=== PATIENT | male | born 1955 | race Two or more races ===

== ENCOUNTER 2019-11-20 14:25 | Inpatient (IN) | payer BC, OTHER ==
[~2019-11-20] VITALS: Ht 172.7 cm; Wt 91.7 kg
[2019-11-20] MEDS ORDERED: SODIUM CHLORIDE 0.9% 1,000 ML IV ONE ×2 (14:32)
[2019-11-20 15:15] LABS: Basophils # (auto) 0.1 10 ^3/uL (0-0.2); Basophils % (auto) 0.6 % (0.0-2.0); Eosinophils # (auto) 0.4 10 ^3/uL (0-0.8); Eosinophils % (auto) 4.2 % (0.0-7.0); Hemoglobin 17.7 g/dL (13.5-17.5); Lymphocytes # (auto) 1.4 10 ^3/uL (0.4-5.4); Monocytes # (auto) 0.6 10 ^3/uL (0-1.3); Nucleated Red Blood Cells % 0.1 %
[2019-11-20 15:18] LABS: Hematocrit 51.6 % (41.0-53.0); Lymphocytes % (auto) 16.1 % (10.0-50.0); Mean Corpuscular Hemoglobin 28.9 pg (28.0-32.0); Mean Corpuscular Hgb Conc. 34.3 g/dL (32.0-36.0); Mean Corpuscular Volume 84.4 fL (80.0-100.0); Monocytes % (auto) 7.5 % (0.0-12.0); Neutrophils # (auto) 6.2 10 ^3/uL (1.6-8.6); Neutrophils % (auto) 71.6 % (37.0-80.0); Platelet Count (auto) 221 10^3/uL (140-450); Red Blood Cells 6.12 10^6/uL (4.5-5.90); White Blood Cell 8.6 10^3/uL (4.4-10.8)
[2019-11-20 15:25] LABS: Alanine Aminotransferase 37 U/L (16-61); Albumin 3.6 g/dL (3.4-5.0); Anion Gap 6 (5-15); Aspartate Aminotransferase 24 U/L (15-37); Blood Urea Nitrogen 13 mg/dL (7-18); Calcium 8.7 mg/dL (8.5-10.1); Carbon Dioxide 24 mmol/L (21-32); Chloride 108 mmol/L (98-107); GFR African American 97 mL/min; GFR Non-African American 80 mL/min; Glucose 101 mg/dL (74-106); Potassium 4.1 mmol/L (3.5-5.1); Sodium 138 mmol/L (136-145)
[2019-11-20 15:30] LABS: Alkaline Phosphatase 84 U/L (45-117); Bilirubin, Total 0.6 mg/dL (0.2-1.0); Total Protein 7.1 g/dL (6.4-8.2)
[2019-11-20 16:07] LABS: Urine Bacteria NONE SEEN /hpf (None Seen); Urine Blood TRACE /uL (Negative); Urine Mucus FEW (None Seen); Urine Specific Gravity 1.021 (1.001-1.035); Urine WBC 4 /hpf (0 - 3)
[2019-11-20] MEDS ORDERED: AMIODARONE HCL 150 MG in D5W 5% 100 ML IV ONE (16:45)
[2019-11-20] MEDS ORDERED: ADENOSINE 6 MG/2 ML INJ IV ONE ×2 (18:45)
[2019-11-20] MEDS ORDERED: dilTIAZem 25 MG/5 ML VIAL IV ONE (19:00)
[2019-11-20] MEDS ORDERED: ACETAMINOPHEN 500 MG TAB PO PRN (19:00)
[2019-11-20] MEDS ORDERED: TEMAZEPAM 15 MG CAP PO PRN (19:00)
[2019-11-20] MEDS ORDERED: MORPHINE SULF INJ 2 MG/ML SYRINGE 1ML IV PRN (19:00)
[2019-11-20] MEDS ORDERED: PROMETHAZINE HCL 25 MG/ML 1ML IV PRN (19:00)
[2019-11-20] MEDS ORDERED: NITROGLYCERIN 0.4 MG SL TAB SL PRN (19:00)
[2019-11-20] MEDS ORDERED: traMADol HCL 50 MG TAB PO PRN (19:00)
[2019-11-20] MEDS: dilTIAZem 125mg/125ml BAG KIT 100 ML IV SCH (19:15)
[2019-11-20] MEDS: SODIUM CHLORIDE 0.9% 1,000 ML IV SCH (19:15)
[2019-11-20 19:48] LABS: Alcohol, Urine < 3.0 mg/dL (0-5); Amphetamine Screen, Urine NEGATIVE (NEGATIVE); Barbiturate Scree,Urine NEGATIVE (NEGATIVE); Benzodiazephine Screen, Urine NEGATIVE (NEGATIVE); Cannabinoid Screen, Urine NEGATIVE (NEGATIVE); Cocaine Screen, Urine NEGATIVE (NEGATIVE); Opiate Scree,Urine NEGATIVE (NEGATIVE); Phencyclidine Screen, Urine NEGATIVE (NEGATIVE)
[2019-11-20] MEDS ORDERED: LABETALOL HCL 5 MG/ML 4ML SYRINGE IV ONE ×3 (21:00→21:30)
[2019-11-20] MEDS ORDERED: LABETALOL HCL 5 MG/ML ML 20ML VIAL IV ONE (21:26)
[2019-11-20 21:50] VITALS: BP 138/88
--- NOTE | 2019-11-20 21:50 | NUR ---
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 Patient transferred to bed, connected to ICU monitoring, and weighed by [facility]. Patient oriented to CADE ALFARO, primary RN, unit, room, bed, and unit policies regarding patient care and visiting hours. Room air, pain level 0/10, and at baseline ambulates independently without the use of assistive devices. Bed locked in lowest position, side rails up x2, and call light within reach. IV: right forearm 18g IID inserted on 11/20/19 and left forearm 18 g running cardizem at 10/NS at 150 inserted on 11/20/19. Skin intact. All questions and concerns addressed, patient verbalized understanding.
[2019-11-20 22:00] VITALS: BP 138/88
[2019-11-20] MEDS ORDERED: ATORVASTATIN 20 MG TAB PO SCH (22:00)
--- NOTE | 2019-11-20 22:30 | NUR ---
MRSA swab sent to lab via [employer] system.
[2019-11-20] MEDS ORDERED: AMIODARONE HCL 900 MG in DEXTROSE 500 ML IV SCH (22:49)
[2019-11-20] MEDS: METOPROLOL TARTRATE 25 MG TAB PO SCH (22:51)
[2019-11-20 23:00] VITALS: BP 121/77
[2019-11-21] VITALS (13 sets, daily range): BP systolic 107–126; BP diastolic 61–82
[2019-11-21] MEDS ORDERED: LEVO112T4 PO (00:30)
[2019-11-21] MEDS: SODIUM CHLORIDE 0.9% 1,000 ML IV SCH (01:38)
[2019-11-21] MEDS ORDERED: dilTIAZem 25 MG/5 ML VIAL IV ONE (06:30)
[2019-11-21] MEDS: dilTIAZem 125mg/125ml BAG KIT 100 ML IV SCH (06:44)
--- NOTE | 2019-11-21 06:45 | NUR ---
Page sent to policyholder information clerk hospitalist in regards to restarting patient's home medication Synthroid 112 mcg.
[2019-11-21] MEDS ORDERED: LEVOTHYROXINE SODIUM 112 MCG TAB PO SCH (07:00)
--- NOTE | 2019-11-21 09:22 | NUR ---
2 D ECHO BEING DONE AT BEDSIDE. SEE REPORT.
[2019-11-21] MEDS: METOPROLOL TARTRATE 25 MG TAB PO SCH (09:50)
[2019-11-21] MEDS ORDERED: ENOXAPARIN SOD 40 MG/0.4 ML SYRINGE SC SCH (10:00)
[2019-11-21] MEDS ORDERED: ASPirin 81 mg TAB PO SCH (10:00)
--- NOTE | 2019-11-21 10:55 | NUR ---
DR. DONNELLY AT BEDSIDE TALKING TO PATIENT ANS . SEE MD NOTES.
[2019-11-21 11:46] LABS: BUN/Creatinine Ratio 12.2; Calcium 8.5 mg/dL (8.5-10.1); Magnesium 2.3 mg/dL (1.6-2.6)
--- NOTE | 2019-11-21 14:36 | NUR ---
Discharge instructions given as ordered. Encourage to follow up with PCP as instructed. All questions and concerns addressed. Patient verbalized understanding. Medication reconciliation form completed and copy given to patient. IV removed FROM LEFT A/C AND RIGHT FA with catheter intact, pressure dressing applied. Patient taken to vehicle via wheelchair with all personal belongings, accompanied by RN. No distress noted at time of departure.
[2019-11-22] MEDS ORDERED: LEVOTHYROXINE SODIUM 112 MCG TAB PO SCH (07:00)
== END 2019-11-21 14:23 | disposition home or self-care (01) | DRG 310 ==
LOC: ER 14:25 → EDBD 14:25 → TELE 14:26 → ICU WEST 21:53
PROVIDERS: ADMIT Internal Medicine; ATTEND Internal Medicine
DX: I48.92 Unspecified atrial flutter (principal); I48.19 Other persistent atrial fibrillation; E03.9 Hypothyroidism, unspecified; E11.9 Type 2 diabetes mellitus without complications; E66.9 Obesity, unspecified; H50.89 Other specified strabismus; H51.8 Other specified disorders of binocular movement; Z82.3 Family history of stroke; Z82.49 Family history of ischemic heart disease and other diseases of the circulatory system; Z79.899 Other long term (current) drug therapy; Z68.30 Body mass index [BMI] 30.0-30.9, adult
CPT/HCPCS: 36415; 71045; 80048; 80053; 80061; 80307; 81001; 82550; 83735; 83880; 84443; 84484; 85025; 85379; 85652; 86141; 87081; 93005; 93306; 96361; 96365; 96366; 96375; G0378; J0153; J7060

== ENCOUNTER 2020-01-19 10:16 | Inpatient (IN) | payer BC ==
[~2020-01-19] VITALS: Ht 172.7 cm; Wt 95.8 kg
[~2020-01-19 10:16] MED LIST: LEVO112T4 PO
[2020-01-19] MEDS ORDERED: ADENOSINE 6 MG/2 ML INJ IV ONE ×3 (10:27→10:45)
[2020-01-19] MEDS ORDERED: ASPirin 81 mg TAB PO ONE (10:30)
[2020-01-19] MEDS ORDERED: dilTIAZem 125mg/125ml BAG KIT 125 ML IV ONE ×3 (10:35→10:45)
[2020-01-19] MEDS ORDERED: dilTIAZem 25 MG/5 ML VIAL IV ONE (10:45)
[2020-01-19 10:53] LABS: Basophils # (auto) 0.1 10 ^3/uL (0-0.2); Mean Corpuscular Hemoglobin 28.2 pg (28.0-32.0); Monocytes # (auto) 0.8 10 ^3/uL (0-1.3); Monocytes % (auto) 7.7 % (0.0-12.0)
[2020-01-19 10:56] LABS: Basophils % (auto) 1.2 % (0.0-2.0); Eosinophils # (auto) 0.5 10 ^3/uL (0-0.8); Eosinophils % (auto) 4.5 % (0.0-7.0); Hemoglobin 19.5 g/dL (13.5-17.5); Lymphocytes # (auto) 2.4 10 ^3/uL (0.4-5.4); Lymphocytes % (auto) 22.4 % (10.0-50.0); Mean Corpuscular Hgb Conc. 33.1 g/dL (32.0-36.0); Neutrophils # (auto) 6.8 10 ^3/uL (1.6-8.6); Neutrophils % (auto) 64.2 % (37.0-80.0); Nucleated Red Blood Cells % 0.2 %; Platelet Count (auto) 344 10^3/uL (140-450); Red Blood Cells 6.93 10^6/uL (4.5-5.90); Red Cell Distribution Width 14.8 % (11.8-14.3); White Blood Cell 10.6 10^3/uL (4.4-10.8)
[2020-01-19 11:11] LABS: INR 1.3 (0.9-1.15); Partial Thromboplastin Time 31.1 sec (23.64-32.05)
[2020-01-19 11:14] LABS: Albumin 3.8 g/dL (3.4-5.0); Anion Gap 5 (5-15); Calcium 9.1 mg/dL (8.5-10.1); Carbon Dioxide 26 mmol/L (21-32); Chloride 108 mmol/L (98-107); Glucose 122 mg/dL (74-106); Potassium 3.8 mmol/L (3.5-5.1); Sodium 139 mmol/L (136-145)
[2020-01-19 11:15] LABS: Alanine Aminotransferase 38 U/L (16-61); Aspartate Aminotransferase 24 U/L (15-37); GFR African American 80 mL/min; GFR Non-African American 66 mL/min
[2020-01-19 11:25] LABS: Alkaline Phosphatase 91 U/L (45-117); Bilirubin, Total 0.8 mg/dL (0.2-1.0); Total Protein 8.2 g/dL (6.4-8.2)
[2020-01-19] MEDS ORDERED: SODIUM CHLORIDE 0.9% 1,000 ML IV ONE (11:45)
[2020-01-19 13:02] LABS: BUN/Creatinine Ratio 11.8; Blood Urea Nitrogen 14 mg/dL (7-18)
[2020-01-19] MEDS ORDERED: NITROGLYCERIN 0.4 MG SL TAB SL PRN ×2 (14:30→15:15)
[2020-01-19] MEDS ORDERED: MORPHINE SULF INJ 2 MG/ML SYRINGE 1ML IV PRN ×2 (14:30→15:15)
[2020-01-19] MEDS ORDERED: METOPROLOL TARTRATE 1MG/1ML-5ML VIAL IV PRN (15:00)
[2020-01-19] MEDS ORDERED: AMIODARONE HCL 150 MG in D5W 5% 100 ML IV ONE (15:00)
[2020-01-19] MEDS ORDERED: AMIODARONE 450mg/250ml AE 250 ML IV SCH (15:00)
[2020-01-19] MEDS ORDERED: SODIUM CHLORIDE 0.9% 1,000 ML IV SCH (15:04)
[2020-01-19] MEDS ORDERED: IOHEXOL 350 MG/ML 100ML IJ ONE (15:06)
[2020-01-19] MEDS ORDERED: HYDROcodone-ACET 5/325MG TAB PO PRN (15:15)
[2020-01-19] MEDS ORDERED: DOCUSATE SOD 100 MG CAP PO PRN (15:15)
[2020-01-19] MEDS ORDERED: ALUM & MAG HYDROX-SIMETH LIQ(MAALOX) 30 ML PO PRN (15:15)
[2020-01-19] MEDS ORDERED: MORPHINE SULFATE 4 MG/ML SYR/VIAL IV PRN (15:15)
[2020-01-19] MEDS ORDERED: ENOXAPARIN SOD 100 MG/1 ML SYRINGE SC ONE (15:15)
[2020-01-19] MEDS ORDERED: METOCLOPRAMIDE HCL 5MG/ml INJ 2ml VIAL IV PRN (15:15)
[2020-01-19 15:33] LABS: Cholesterol 131 mg/dL (< 200)
[2020-01-19 15:35] LABS: HDL Cholesterol 43 mg/dL (40-59); LDL Cholesterol 76 mg/dL (< 100); Triglycerides 106 mg/dL (< 150)
[2020-01-19 17:37] VITALS: BP 112/66
[2020-01-19] MEDS: SODIUM CHLORIDE 0.9% 1,000 ML IV SCH ×2 (19:50→21:31)
[2020-01-19 20:00] VITALS: BP 132/79
[2020-01-19] MEDS: AMIODARONE 450mg/250ml AE 250 ML IV SCH (21:31)
[2020-01-19 22:00] VITALS: BP 132/79
[2020-01-20] VITALS (7 sets, daily range): BP systolic 135–158; BP diastolic 86–96
[2020-01-20 01:05] LABS: Urine Bacteria FEW /hpf (None Seen); Urine Blood Negative /uL (Negative); Urine Mucus FEW (None Seen); Urine Specific Gravity 1.039 (1.001-1.035); Urine WBC 2 /hpf (0 - 3)
[2020-01-20 01:16] LABS: Barbiturate Scree,Urine NEGATIVE (NEGATIVE); Benzodiazephine Screen, Urine NEGATIVE (NEGATIVE); Cannabinoid Screen, Urine NEGATIVE (NEGATIVE); Cocaine Screen, Urine NEGATIVE (NEGATIVE); Opiate Scree,Urine NEGATIVE (NEGATIVE); Phencyclidine Screen, Urine NEGATIVE (NEGATIVE)
[2020-01-20 01:26] LABS: Amphetamine Screen, Urine NEGATIVE (NEGATIVE)
[2020-01-20 05:28] LABS: Basophils # (auto) 0.1 10 ^3/uL (0-0.2); Basophils % (auto) 0.8 % (0.0-2.0); Eosinophils # (auto) 0.6 10 ^3/uL (0-0.8); Eosinophils % (auto) 7.2 % (0.0-7.0); Hematocrit 52.8 % (41.0-53.0); Hemoglobin 17.4 g/dL (13.5-17.5); Lymphocytes # (auto) 1.5 10 ^3/uL (0.4-5.4); Lymphocytes % (auto) 18.1 % (10.0-50.0); Mean Corpuscular Hemoglobin 28.4 pg (28.0-32.0); Mean Corpuscular Hgb Conc. 32.9 g/dL (32.0-36.0); Mean Corpuscular Volume 86.3 fL (80.0-100.0); Monocytes # (auto) 0.6 10 ^3/uL (0-1.3); Monocytes % (auto) 7.3 % (0.0-12.0); Neutrophils # (auto) 5.4 10 ^3/uL (1.6-8.6); Neutrophils % (auto) 66.6 % (37.0-80.0); Nucleated Red Blood Cells % 0.2 %; Platelet Count (auto) 192 10^3/uL (140-450); Red Blood Cells 6.13 10^6/uL (4.5-5.90); Red Cell Distribution Width 14.3 % (11.8-14.3); White Blood Cell 8.1 10^3/uL (4.4-10.8)
[2020-01-20 05:42] LABS: INR 1.08 (0.9-1.15); Partial Thromboplastin Time 27.9 sec (23.64-32.05)
[2020-01-20 05:48] LABS: Albumin 3.4 g/dL (3.4-5.0); Anion Gap 5 (5-15); Blood Urea Nitrogen 12 mg/dL (7-18); Calcium 8.4 mg/dL (8.5-10.1); Carbon Dioxide 24 mmol/L (21-32); Chloride 109 mmol/L (98-107); Glucose 97 mg/dL (74-106); Magnesium 2.4 mg/dL (1.6-2.6); Potassium 3.9 mmol/L (3.5-5.1); Sodium 138 mmol/L (136-145)
[2020-01-20 05:54] LABS: Alanine Aminotransferase 31 U/L (16-61); Alkaline Phosphatase 72 U/L (45-117); Aspartate Aminotransferase 19 U/L (15-37); BUN/Creatinine Ratio 14.3; Bilirubin, Total 1.2 mg/dL (0.2-1.0); Creatine Kinase IFCC 113 U/L (39-308); GFR African American 119 mL/min; GFR Non-African American 98 mL/min; Phosphorus 2.7 mg/dL (2.5-4.90); Total Protein 6.8 g/dL (6.4-8.2)
[2020-01-20] MEDS ORDERED: LEVOTHYROXINE SODIUM 112 MCG TAB PO SCH (07:00)
[2020-01-20] MEDS ORDERED: METOPROLOL SUCCINATE XL 50 MG TAB PO SCH (10:00)
[2020-01-20] MEDS ORDERED: METO25TA93 PO (10:33)
[2020-01-20] MEDS: AMIODARONE 450mg/250ml AE 250 ML IV SCH (14:01)
[2020-01-20] MEDS: SODIUM CHLORIDE 0.9% 1,000 ML IV SCH (14:32)
[2020-01-20] MEDS ORDERED: ASPI-498 PO (14:38)
[2020-01-20] MEDS ORDERED: MET25T PO (14:38)
[2020-01-20] MEDS ORDERED: MELO1TAB56 PO (14:41)
[2020-01-20] MEDS ORDERED: MORPHINE SULF INJ 2 MG/ML SYRINGE 1ML IV PRN (15:00)
[2020-01-20] MEDS ORDERED: AMIO200T4 PO (21:19)
[2020-01-20] MEDS ORDERED: METO-6 PO (21:19)
[2020-01-20] MEDS ORDERED: AMIODARONE HCL 200 MG TAB PO SCH (22:00)
== END 2020-01-20 23:05 | disposition home or self-care (01) | DRG 310 ==
LOC: ER 10:16 → TELE 10:17 → TELE-CENTR 16:54
PROVIDERS: ADMIT Hospitalist; ATTEND Hospitalist
DX: I48.4 Atypical atrial flutter (principal); D75.1 Secondary polycythemia; I45.89 Other specified conduction disorders; I47.1 Supraventricular tachycardia; E03.9 Hypothyroidism, unspecified; E66.01 Morbid (severe) obesity due to excess calories; E86.0 Dehydration; H50.9 Unspecified strabismus; I10 Essential (primary) hypertension; I48.91 Unspecified atrial fibrillation; J44.9 Chronic obstructive pulmonary disease, unspecified; M17.10 Unilateral primary osteoarthritis, unspecified knee; R73.03 Prediabetes; Z68.32 Body mass index [BMI] 32.0-32.9, adult; Z85.038 Personal history of other malignant neoplasm of large intestine; Z85.47 Personal history of malignant neoplasm of testis; Z86.73 Personal history of transient ischemic attack (TIA), and cerebral infarction without residual deficits; Z87.891 Personal history of nicotine dependence
CPT/HCPCS: 36415; 71045; 71275; 80053; 80061; 80307; 81001; 82550; 83036; 83735; 83835; 84100; 84443; 84484; 85025; 85610; 85730; 93005; 96365; 96366; 96367; 96372; 96375; 99291; G0378; J0153; J7060